=== PATIENT | female | born 1925 | race Caucasian/White ===

== ENCOUNTER → 2016-09-10 | Outpatient (CLI) | payer MEDICARE | END | disposition home or self-care (01) | LOC: CFH 13:17 | PROVIDERS: ATTEND Family Medicine | DX: M25.821 Other specified joint disorders, right elbow (principal); W18.30XA Fall on same level, unspecified, initial encounter ==

== ENCOUNTER 2016-10-22 10:16 | Inpatient (IN) | payer MEDICARE ==
[~2016-10-22] VITALS: Ht 154.9 cm; Wt 78.0 kg
[2016-10-22] MEDS ORDERED: DIPHENHYDRAMINE 50 MG/ML, 1ML IVPush ONE (10:30)
[2016-10-22] MEDS ORDERED: SODIUM CHLORIDE FLUSH 10ML SYR IVF ONE ×2 (10:30→14:00)
[2016-10-22] MEDS ORDERED: ONDANSETRON 2MG/ML, 2ML IVPush ONE (10:30)
[2016-10-22] MEDS ORDERED: METOCLOPRAMIDE 5 MG/ML, 2ML IVPush ONE (10:30)
[2016-10-22] MEDS ORDERED: METOCLOPRAMIDE 5 MG/ML, 2ML ONE (10:39)
[2016-10-22] MEDS ORDERED: DIPHENHYDRAMINE 50 MG/ML, 1ML ONE (10:40)
[2016-10-22] MEDS ORDERED: ONDANSETRON 2MG/ML, 2ML ONE (10:40)
[2016-10-22 11:21] LABS: HEMATOCRIT 42.1 % (34.6-47.8); HEMOGLOBIN 13.7 g/dL (11.7-16.4); WHITE BLOOD COUNT 11.4 x10^3/uL (3.4-10)
[2016-10-22 11:32] LABS: ASPARTATE AMINO TRANSFERASE 21 U/L (15-37); BLOOD UREA NITROGEN 19 mg/dL (7-18)
[2016-10-22 11:36] LABS: IS PT STATUS REG ER OR PRE ER? YES
[2016-10-22] MEDS ORDERED: ASPIRIN 81 MG TABLET CHEW ONE (11:52)
[2016-10-22] MEDS ORDERED: LOVA40TA2 PO (12:00)
[2016-10-22] MEDS ORDERED: LOSA25TA5 PO (12:00)
[2016-10-22] MEDS ORDERED: ASPIRIN 81 MG TABLET CHEW PO ONE (12:00)
[2016-10-22] MEDS ORDERED: OMEG-120 PO (12:02)
[2016-10-22] MEDS ORDERED: FOLI0.4T2 PO (12:02)
[2016-10-22] MEDS ORDERED: SERT100T5 PO (12:03)
[2016-10-22] MEDS ORDERED: HYDROmorphone 1 MG/ML, 1ML ONE (14:03)
[2016-10-22] MEDS: HYDROmorphone 1 MG/ML, 1ML IVPush PRN ×2 (14:11→15:11)
[2016-10-22] MEDS ORDERED: NS + 20MEQ KCL 1,000 ML IV SCH (14:12)
[2016-10-22] MEDS ORDERED: DOCUSATE 100 MG CAPSULE PO PRN (14:30)
[2016-10-22] MEDS ORDERED: HYDROcodone/APAP 5/325 TABLET PO PRN (14:30)
[2016-10-22] MEDS ORDERED: POLYETHYLENE GLYCOL 17 GM PACKET PO PRN (14:30)
[2016-10-22] MEDS ORDERED: ONDANSETRON 2MG/ML, 2ML IVPush PRN (14:30)
[2016-10-22] MEDS ORDERED: OMNIPAQUE 350 MG/ML, 100ML BOTTLE ONE (15:30)
[2016-10-22] MEDS: ACETAMINOPHEN 325 MG TABLET PO PRN (16:16)
[2016-10-22] MEDS ORDERED: ENOXAPARIN 40 MG/0.4 ML SQ SCH (16:30)
[2016-10-22] MEDS: LOSARTAN 25MG TABLET PO SCH ×2 (16:33→21:04)
[2016-10-22 20:06] VITALS: BP 111/64
[2016-10-22] MEDS ORDERED: LOVASTATIN 40 MG TABLET PO SCH (21:00)
[2016-10-23 01:13] VITALS: BP 135/75
[2016-10-23] MEDS: ACETAMINOPHEN 325 MG TABLET PO PRN ×2 (01:57→10:22)
[2016-10-23 05:33] LABS: IS PT STATUS REG ER OR PRE ER? NO
[2016-10-23] MEDS: ASPIRIN 325 MG TABLET EC PO SCH (06:06)
[2016-10-23 06:39] VITALS: BP 114/66
[2016-10-23] MEDS ORDERED: NS + 20MEQ KCL 1,000 ML IV SCH ×2 (07:00→19:00)
[2016-10-23] MEDS: LOSARTAN 25MG TABLET PO SCH ×3 (08:33→21:00)
[2016-10-23] MEDS: FOLIC ACID 1 MG TABLET PO SCH (08:33)
[2016-10-23] MEDS: SERTRALINE 100MG TABLET PO SCH (08:33)
[2016-10-23] MEDS: SENNA/DOCUSATE TABLET PO SCH (08:33)
[2016-10-23] MEDS: KETOROLAC 30 MG/1 ML IVPush PRN (08:34)
[2016-10-23] MEDS: METOPROLOL SUCCINATE 25 MG TAB.ER.24H PO SCH (10:29)
[2016-10-23 10:39] VITALS: BP 162/82
[2016-10-23 10:45] VITALS: BP 149/78
[2016-10-23] MEDS ORDERED: NITROGLYCERIN 0.4 MG BOTTLE (25 TABS) SL PRN (11:00)
[2016-10-23] MEDS ORDERED: ETOMIDATE 20 MG/10 ML ONE (11:00)
[2016-10-23] MEDS ORDERED: SUCCINYLCHOLINE 20 MG/ML, 10ML ONE (11:00)
[2016-10-23] MEDS ORDERED: MIDAZOLAM 1 MG/ML, 5ML ONE ×2 (11:00→11:42)
[2016-10-23] MEDS ORDERED: FENTANYL PF 100 MCG/2ML ONE (11:41)
[2016-10-23] MEDS ORDERED: LIDOCAINE 2%, 20ML ONE (11:42)
[2016-10-23] MEDS ORDERED: HEPARIN 1,000 UNITS/ML, 10ML ONE (11:42)
[2016-10-23] MEDS ORDERED: VERAPAMIL 2.5 MG/ML, 2ML ONE (11:42)
[2016-10-23] MEDS ORDERED: BIVALIRUDIN 250 MG ONE ×3 (11:42→14:21)
[2016-10-23] MEDS ORDERED: TICAGRELOR 90 MG TABLET ONE (11:42)
[2016-10-23] MEDS ORDERED: NITROGLYCERIN 5 MG/ML, 10ML ONE (11:42)
[2016-10-23] MEDS ORDERED: ADENOSINE 6 MG/2 ML ONE (12:44)
[2016-10-23] MEDS ORDERED: EPINEPHRINE SYRINGE 0.1 MG/ML, 10ML ONE ×2 (13:27→14:08)
[2016-10-23] MEDS ORDERED: PHENYLEPHRINE 10 MG/ML ONE (14:07)
[2016-10-23] MEDS ORDERED: DOPAMINE/D5W PMX 250 ML ONE (14:27)
[2016-10-23] MEDS: TICAGRELOR 90 MG TABLET PO SCH ×3 (14:30→21:32)
[2016-10-23] MEDS ORDERED: LIDOCAINE-MPF 1%, 2ML ENDO PRN (15:00)
[2016-10-23] MEDS ORDERED: BIVALIRUDIN 250 MG in DEXTROSE 5% 50 ML IV SCH (15:00)
[2016-10-23] MEDS ORDERED: PHARMACY MAY ADJ FOR RENAL FX MC SCH (15:00)
[2016-10-23 15:15] LABS: ABG COLLECTION SITE LEFT RADIAL; COLLATERAL CIRCULATION TESTING NORMAL
[2016-10-23] MEDS: FENTANYL PF 100 MCG/2ML IVPush PRN ×3 (15:50→22:20)
[2016-10-23] MEDS: ENOXAPARIN 30 MG/0.3 ML SQ SCH (16:00)
[2016-10-23] MEDS: PROPOFOL 100 ML IV PRN (16:00)
[2016-10-23] MEDS ORDERED: PICC FLUSH PROTOCOL XX PRN (17:00)
[2016-10-23] MEDS: ATORVASTATIN 40 MG TABLET PO SCH (21:32)
[2016-10-24] MEDS: PROPOFOL 100 ML IV PRN ×5 (00:17→19:51)
[2016-10-24] MEDS: DOPAMINE/D5W PMX 250 ML IV PRN ×2 (03:13→19:52)
[2016-10-24] MEDS: FENTANYL PF 100 MCG/2ML IVPush PRN ×8 (03:20→14:45)
[2016-10-24 04:34] LABS: ABG COLLECTION SITE RIGHT BRACHIAL
[2016-10-24 04:49] LABS: BLOOD UREA NITROGEN 22 mg/dL (7-18)
[2016-10-24] MEDS: METOPROLOL SUCCINATE 25 MG TAB.ER.24H PO SCH (04:54)
[2016-10-24 05:00] VITALS: BP 90/50
[2016-10-24 05:01] LABS: HEMATOCRIT 37.9 % (34.6-47.8); HEMOGLOBIN 12.4 g/dL (11.7-16.4)
[2016-10-24] MEDS: SODIUM CHLORIDE 0.9% 1,000 ML IV SCH ×2 (05:06→18:41)
[2016-10-24] MEDS: ASPIRIN 325 MG TABLET EC PO SCH (05:10)
[2016-10-24] MEDS: SENNA/DOCUSATE TABLET PO SCH (09:00)
[2016-10-24] MEDS: LOSARTAN 25MG TABLET PO SCH ×3 (09:00→20:27)
[2016-10-24] MEDS: ASPIRIN 81 MG TABLET EC PO SCH (09:00)
[2016-10-24] MEDS: FOLIC ACID 1 MG TABLET PO SCH (09:23)
[2016-10-24] MEDS: FAMOTIDINE 20 MG/2 ML IVPush SCH (09:23)
[2016-10-24] MEDS: AMPICILLIN/SULBACTAM 3 GM in SODIUM CHLORIDE 0.9% 100 ML IV SCH ×2 (09:23→17:08)
[2016-10-24] MEDS: TICAGRELOR 90 MG TABLET PO SCH ×2 (09:23→20:27)
[2016-10-24] MEDS: SERTRALINE 100MG TABLET PO SCH (09:23)
[2016-10-24] MEDS: ENOXAPARIN 30 MG/0.3 ML SQ SCH (16:11)
[2016-10-24] MEDS: ATORVASTATIN 40 MG TABLET PO SCH (20:27)
[2016-10-24] MEDS: KETOROLAC 30 MG/1 ML IVPush PRN (22:05)
[2016-10-25] MEDS: AMPICILLIN/SULBACTAM 3 GM in SODIUM CHLORIDE 0.9% 100 ML IV SCH ×3 (00:04→17:04)
[2016-10-25] MEDS: PROPOFOL 100 ML IV PRN ×2 (00:04→05:02)
[2016-10-25] MEDS: FENTANYL PF 100 MCG/2ML IVPush PRN ×2 (01:32→05:02)
[2016-10-25 04:10] LABS: ABG COLLECTION SITE RIGHT RADIAL; COLLATERAL CIRCULATION TESTING NORMAL
[2016-10-25 04:19] LABS: HEMATOCRIT 35.3 % (34.6-47.8); HEMOGLOBIN 11.6 g/dL (11.7-16.4); WHITE BLOOD COUNT 12.4 x10^3/uL (3.4-10)
[2016-10-25 04:45] VITALS: BP 130/53
[2016-10-25] MEDS: METOPROLOL SUCCINATE 25 MG TAB.ER.24H PO SCH (05:04)
[2016-10-25] MEDS: SODIUM CHLORIDE 0.9% 1,000 ML IV SCH ×2 (06:15→20:39)
[2016-10-25 07:08] LABS: BLOOD UREA NITROGEN 17 mg/dL (7-18)
[2016-10-25] MEDS ORDERED: POTASSIUM CHLORIDE 10% 40 MEQ/30 ML UDC PO ONE (08:00)
[2016-10-25] MEDS: SENNA/DOCUSATE TABLET PO SCH (09:00)
[2016-10-25] MEDS: LOSARTAN 25MG TABLET PO SCH ×3 (09:00→20:38)
[2016-10-25] MEDS: ASPIRIN 81 MG TABLET EC PO SCH (10:35)
[2016-10-25] MEDS: SERTRALINE 100MG TABLET PO SCH (10:35)
[2016-10-25] MEDS: ACETAMINOPHEN 325 MG TABLET PO PRN ×2 (10:35→22:08)
[2016-10-25] MEDS: FAMOTIDINE 20 MG/2 ML IVPush SCH (10:35)
[2016-10-25] MEDS: TICAGRELOR 90 MG TABLET PO SCH ×2 (10:35→20:37)
[2016-10-25] MEDS: FOLIC ACID 1 MG TABLET PO SCH (10:35)
[2016-10-25] MEDS: ENOXAPARIN 30 MG/0.3 ML SQ SCH (17:05)
[2016-10-25] MEDS ORDERED: HYDROcodone/APAP 5/325 TABLET PO PRN (18:30)
[2016-10-25] MEDS ORDERED: ONDANSETRON 2MG/ML, 2ML IVPush PRN (18:30)
[2016-10-25] MEDS ORDERED: DOCUSATE 100 MG CAPSULE PO PRN (18:30)
[2016-10-25] MEDS ORDERED: POLYETHYLENE GLYCOL 17 GM PACKET PO PRN (18:30)
[2016-10-25] MEDS ORDERED: PHARMACY MAY ADJ FOR RENAL FX MC SCH (18:30)
[2016-10-25] MEDS ORDERED: FUROSEMIDE 20 MG/2 ML IV ONE (18:30)
[2016-10-25] MEDS: ATORVASTATIN 40 MG TABLET PO SCH (20:37)
[2016-10-26] MEDS: AMPICILLIN/SULBACTAM 3 GM in SODIUM CHLORIDE 0.9% 100 ML IV SCH ×3 (01:09→18:04)
[2016-10-26 03:30] VITALS: BP 111/47
[2016-10-26 04:28] LABS: HEMATOCRIT 32.7 % (34.6-47.8); HEMOGLOBIN 10.8 g/dL (11.7-16.4); WHITE BLOOD COUNT 10.9 x10^3/uL (3.4-10)
[2016-10-26 04:53] LABS: ABG COLLECTION SITE RIGHT RADIAL; COLLATERAL CIRCULATION TESTING NORMAL
[2016-10-26 05:23] LABS: BLOOD UREA NITROGEN 14 mg/dL (7-18)
[2016-10-26] MEDS: METOPROLOL SUCCINATE 25 MG TAB.ER.24H PO SCH (06:00)
[2016-10-26] MEDS: ASPIRIN 81 MG TABLET EC PO SCH (08:10)
[2016-10-26] MEDS: FAMOTIDINE 20 MG/2 ML IVPush SCH (08:11)
[2016-10-26] MEDS: TICAGRELOR 90 MG TABLET PO SCH ×2 (08:11→21:05)
[2016-10-26] MEDS: LOSARTAN 25MG TABLET PO SCH ×3 (08:11→21:05)
[2016-10-26] MEDS: SERTRALINE 100MG TABLET PO SCH (08:11)
[2016-10-26] MEDS: SENNA/DOCUSATE TABLET PO SCH (08:11)
[2016-10-26] MEDS: FOLIC ACID 1 MG TABLET PO SCH (08:11)
[2016-10-26] MEDS ORDERED: SODIUM CHLORIDE 0.9% 1,000 ML IV SCH (08:30)
[2016-10-26] MEDS ORDERED: KETOROLAC 30 MG/1 ML ONE (10:00)
[2016-10-26] MEDS: KETOROLAC 30 MG/1 ML IVPush PRN (10:01)
[2016-10-26 14:45] VITALS: BP 147/72
[2016-10-26] MEDS: ENOXAPARIN 30 MG/0.3 ML SQ SCH (18:04)
[2016-10-26] MEDS: ATORVASTATIN 40 MG TABLET PO SCH (21:05)
[2016-10-27] MEDS: AMPICILLIN/SULBACTAM 3 GM in SODIUM CHLORIDE 0.9% 100 ML IV SCH ×3 (01:17→18:02)
[2016-10-27 04:00] VITALS: BP 152/78
[2016-10-27 05:28] LABS: HEMATOCRIT 32.2 % (34.6-47.8); HEMOGLOBIN 10.6 g/dL (11.7-16.4); WHITE BLOOD COUNT 9.8 x10^3/uL (3.4-10)
[2016-10-27 05:36] LABS: ASPARTATE AMINO TRANSFERASE 37 U/L (15-37); BLOOD UREA NITROGEN 18 mg/dL (7-18)
[2016-10-27] MEDS: METOPROLOL SUCCINATE 25 MG TAB.ER.24H PO SCH (06:10)
[2016-10-27 06:50] VITALS: BP 140/77
[2016-10-27] MEDS: LOSARTAN 25MG TABLET PO SCH (08:48)
[2016-10-27] MEDS: FOLIC ACID 1 MG TABLET PO SCH (08:49)
[2016-10-27] MEDS: TICAGRELOR 90 MG TABLET PO SCH ×2 (08:49→21:06)
[2016-10-27] MEDS: ASPIRIN 81 MG TABLET EC PO SCH (08:50)
[2016-10-27] MEDS: FAMOTIDINE 20 MG/2 ML IVPush SCH (08:50)
[2016-10-27] MEDS: SENNA/DOCUSATE TABLET PO SCH (08:50)
[2016-10-27] MEDS: SERTRALINE 100MG TABLET PO SCH (08:50)
[2016-10-27] MEDS ORDERED: METOPROLOL SUCCINATE 25 MG TAB.ER.24H PO ONE (10:00)
[2016-10-27] MEDS ORDERED: POTASSIUM CHLORIDE 20 MEQ TAB.ER.PRT PO ONE (11:00)
[2016-10-27] MEDS ORDERED: FUROSEMIDE 40 MG/4 ML IV ONE (11:00)
[2016-10-27 14:34] VITALS: BP 137/76
[2016-10-27] MEDS ORDERED: SENNA/DOCUSATE TABLET PO PRN (16:00)
[2016-10-27 16:56] VITALS: BP 139/79
[2016-10-27] MEDS: ENOXAPARIN 30 MG/0.3 ML SQ SCH (18:02)
[2016-10-27 20:09] VITALS: BP 148/78
[2016-10-27] MEDS: ATORVASTATIN 40 MG TABLET PO SCH (21:06)
[2016-10-28 01:04] VITALS: BP 155/69
[2016-10-28 05:21] VITALS: BP 148/84
[2016-10-28] MEDS: METOPROLOL SUCCINATE 50 MG TAB.ER.24H PO SCH (05:21)
[2016-10-28] MEDS: AMPICILLIN/SULBACTAM 3 GM in SODIUM CHLORIDE 0.9% 100 ML IV SCH ×3 (05:23→21:49)
[2016-10-28 05:31] LABS: WHITE BLOOD COUNT 8.5 x10^3/uL (3.4-10)
[2016-10-28 05:45] LABS: BLOOD UREA NITROGEN 18 mg/dL (7-18)
[2016-10-28 09:19] VITALS: BP 123/75
[2016-10-28] MEDS: ASPIRIN 81 MG TABLET EC PO SCH (09:21)
[2016-10-28] MEDS: FOLIC ACID 1 MG TABLET PO SCH (09:22)
[2016-10-28] MEDS: TICAGRELOR 90 MG TABLET PO SCH ×2 (09:22→21:49)
[2016-10-28] MEDS: LOSARTAN 25MG TABLET PO SCH (09:22)
[2016-10-28] MEDS: FAMOTIDINE 20 MG/2 ML IVPush SCH (09:23)
[2016-10-28] MEDS: SERTRALINE 100MG TABLET PO SCH (09:25)
[2016-10-28] MEDS: FUROSEMIDE 40 MG TABLET PO SCH (10:52)
[2016-10-28] MEDS: SPIRONOLACTONE 25 MG TABLET PO SCH (10:52)
[2016-10-28] MEDS: ENOXAPARIN 30 MG/0.3 ML SQ SCH (15:03)
[2016-10-28 16:41] VITALS: BP 122/77
[2016-10-28 18:36] VITALS: BP 132/68
[2016-10-28] MEDS: ATORVASTATIN 40 MG TABLET PO SCH (21:49)
[2016-10-29 04:00] VITALS: BP 129/76
[2016-10-29 05:24] LABS: WHITE BLOOD COUNT 9.6 x10^3/uL (3.4-10)
[2016-10-29 05:36] LABS: BLOOD UREA NITROGEN 18 mg/dL (7-18)
[2016-10-29] MEDS: METOPROLOL SUCCINATE 50 MG TAB.ER.24H PO SCH (06:00)
[2016-10-29 06:09] VITALS: BP 135/78
[2016-10-29] MEDS: AMPICILLIN/SULBACTAM 3 GM in SODIUM CHLORIDE 0.9% 100 ML IV SCH ×3 (06:17→23:50)
[2016-10-29 07:59] VITALS: BP 124/73
[2016-10-29] MEDS ORDERED: POTASSIUM CHLORIDE 20 MEQ TAB.ER.PRT PO ONE ×2 (08:30→15:00)
[2016-10-29] MEDS: FAMOTIDINE 20 MG/2 ML IVPush SCH (09:31)
[2016-10-29] MEDS: SERTRALINE 100MG TABLET PO SCH (09:31)
[2016-10-29] MEDS: FOLIC ACID 1 MG TABLET PO SCH (09:31)
[2016-10-29] MEDS: SPIRONOLACTONE 25 MG TABLET PO SCH (09:31)
[2016-10-29] MEDS: LOSARTAN 50MG TABLET PO SCH (09:31)
[2016-10-29] MEDS: ASPIRIN 81 MG TABLET EC PO SCH (09:31)
[2016-10-29] MEDS: TICAGRELOR 90 MG TABLET PO SCH ×2 (09:31→21:07)
[2016-10-29] MEDS: FUROSEMIDE 40 MG TABLET PO SCH (09:31)
[2016-10-29] MEDS ORDERED: FUROSEMIDE 20 MG/2 ML IV ONE (15:00)
[2016-10-29] MEDS: ENOXAPARIN 30 MG/0.3 ML SQ SCH (15:18)
[2016-10-29 19:06] VITALS: BP_SYST 142; BP_SYST 147; BP_DIAS 68; BP_DIAS 89
[2016-10-29] MEDS ORDERED: CALCIUM CARBONATE 500 MG TAB.CHEW PO PRN (20:00)
[2016-10-29] MEDS: ATORVASTATIN 40 MG TABLET PO SCH (21:07)
[2016-10-30 01:21] VITALS: BP 121/72
[2016-10-30 05:13] LABS: HEMATOCRIT 32.2 % (34.6-47.8); HEMOGLOBIN 10.8 g/dL (11.7-16.4); WHITE BLOOD COUNT 9.3 x10^3/uL (3.4-10)
[2016-10-30 05:39] LABS: BLOOD UREA NITROGEN 20 mg/dL (7-18)
[2016-10-30] MEDS: METOPROLOL SUCCINATE 50 MG TAB.ER.24H PO SCH (06:00)
[2016-10-30 07:38] VITALS: BP 108/64
[2016-10-30] MEDS ORDERED: POTASSIUM CHLORIDE 20 MEQ TAB.ER.PRT PO SCH (08:00)
[2016-10-30] MEDS: SERTRALINE 100MG TABLET PO SCH (08:05)
[2016-10-30] MEDS: AMPICILLIN/SULBACTAM 3 GM in SODIUM CHLORIDE 0.9% 100 ML IV SCH (08:05)
[2016-10-30] MEDS: ASPIRIN 81 MG TABLET EC PO SCH (08:06)
[2016-10-30] MEDS: FUROSEMIDE 40 MG TABLET PO SCH (08:06)
[2016-10-30] MEDS: FOLIC ACID 1 MG TABLET PO SCH (08:06)
[2016-10-30] MEDS: FAMOTIDINE 20 MG/2 ML IVPush SCH (08:06)
[2016-10-30] MEDS: SPIRONOLACTONE 25 MG TABLET PO SCH (08:06)
[2016-10-30] MEDS: TICAGRELOR 90 MG TABLET PO SCH (08:06)
[2016-10-30] MEDS: LOSARTAN 50MG TABLET PO SCH (09:00)
[2016-10-30] MEDS ORDERED: POTASSIUM CHLORIDE 20 MEQ TAB.ER.PRT PO ONE (12:00)
[2016-10-30] MEDS ORDERED: ATOR40TA78 PO (12:32)
[2016-10-30] MEDS ORDERED: ASPI-621 PO (12:32)
[2016-10-30] MEDS ORDERED: TICA90TA PO (12:32)
[2016-10-30] MEDS ORDERED: SERT100T5 PO (12:32)
[2016-10-30] MEDS ORDERED: LOSA50TA2 PO (12:32)
[2016-10-30] MEDS ORDERED: POTA20TA6 PO (12:32)
[2016-10-30] MEDS ORDERED: SPIR25TA PO (12:32)
[2016-10-30] MEDS ORDERED: FURO40TA6 PO (12:32)
[2016-10-30] MEDS ORDERED: FAMO20TA7 PO (12:32)
[2016-10-30] MEDS ORDERED: METO-93 PO (12:32)
[2016-10-30] MEDS ORDERED: NITR0.4T SL (12:32)
[2016-10-30 13:24] VITALS: BP 114/66
[2016-10-31] MEDS ORDERED: FAMOTIDINE 20 MG TABLET PO SCH (09:00)
== END 2016-10-30 17:28 | DRG 270 ==
LOC: SUATTDRO 13:14 → ED 13:30 → EDIP 13:31 → ED 14:33 → 5SO 15:47 → CCU 10-23 13:26 → 5SO 10-26 10:02
PROVIDERS: ADMIT Family Medicine; ATTEND Family Medicine
PROC: 5A02210 Assistance with Cardiac Output using Balloon Pump, Continuous (ICD-10-PCS; principal; 2016-10-23)
PROC: 027135Z Dilation of Coronary Artery, Two Arteries with Two Drug-eluting Intraluminal Devices, Percutaneous Approach (ICD-10-PCS; 2016-10-23)
PROC: 4A023N7 Measurement of Cardiac Sampling and Pressure, Left Heart, Percutaneous Approach (ICD-10-PCS; 2016-10-23)
PROC: B2111ZZ Fluoroscopy of Multiple Coronary Arteries using Low Osmolar Contrast (ICD-10-PCS; 2016-10-23)
PROC: B2151ZZ Fluoroscopy of Left Heart using Low Osmolar Contrast (ICD-10-PCS; 2016-10-23)
PROC: 5A1945Z Respiratory Ventilation, 24-96 Consecutive Hours (ICD-10-PCS; 2016-10-23)
PROC: 02HV33Z Insertion of Infusion Device into Superior Vena Cava, Percutaneous Approach (ICD-10-PCS; 2016-10-23)
PROC: B548ZZA Ultrasonography of Superior Vena Cava, Guidance (ICD-10-PCS; 2016-10-23)
PROC: 0BH17EZ Insertion of Endotracheal Airway into Trachea, Via Natural or Artificial Opening (ICD-10-PCS; 2016-10-24)
DX: I21.4 Non-ST elevation (NSTEMI) myocardial infarction (principal); R57.0 Cardiogenic shock; J96.91 Respiratory failure, unspecified with hypoxia; I50.30 Unspecified diastolic (congestive) heart failure; G93.40 Encephalopathy, unspecified; I11.0 Hypertensive heart disease with heart failure; E44.0 Moderate protein-calorie malnutrition; I42.9 Cardiomyopathy, unspecified; Z99.11 Dependence on respirator [ventilator] status; I48.91 Unspecified atrial fibrillation; E78.5 Hyperlipidemia, unspecified; I25.10 Atherosclerotic heart disease of native coronary artery without angina pectoris; I27.2 Other secondary pulmonary hypertension; I27.81 Cor pulmonale (chronic); E87.6 Hypokalemia; F32.9 Major depressive disorder, single episode, unspecified; G44.89 Other headache syndrome; I08.1 Rheumatic disorders of both mitral and tricuspid valves; Z66 Do not resuscitate; I25.2 Old myocardial infarction; Z90.710 Acquired absence of both cervix and uterus; Z79.82 Long term (current) use of aspirin; Z88.5 Allergy status to narcotic agent; Z88.2 Allergy status to sulfonamides; Z68.32 Body mass index [BMI] 32.0-32.9, adult; Z87.891 Personal history of nicotine dependence; Z80.41 Family history of malignant neoplasm of ovary
CPT/HCPCS: 33210; 33967; 36415; 36569; 36600; 70450; 71010; 71020; 71275; 76937; 77001; 80048; 80053; 80061; 81003; 82040; 82803; 83605; 83735; 83880; 84478; 84484; 85025; 85379; 85610; 85730; 87040; 87070; 87077; 87081; 87186; 87205; 87324; 93005; 93306; 93308; 93458; 94002; 94003; 96374; 96375; 99156; 99157; C1725; C1760; C1894; C9600; C9601; J0153; J0295; J0583; J1170; J1265; J1644; J1650; J1885; J1940; J2250; J2405; J2704; J3010; J3480; J3490; Q9967; C1751; C1874; C1887; J0330; J1200; J2370; J2765; J7030; S0028

== ENCOUNTER → 2017-04-07 | Outpatient (CLI) | payer MEDICARE ==
[~2017-04-07] MED LIST: ASPI-621 PO; ATOR40TA78 PO; FAMO20TA7 PO; FOLI0.4T2 PO; FURO40TA6 PO; LOSA25TA5 PO; LOSA50TA2 PO; LOVA40TA2 PO; METO-93 PO; NITR0.4T SL; OMEG-120 PO; POTA20TA6 PO; SERT100T5 PO; SPIR25TA PO; TICA90TA PO
== END | disposition home or self-care (01) ==
LOC: CFH 12:50
PROVIDERS: ATTEND Family Medicine
DX: M71.21 Synovial cyst of popliteal space [Baker], right knee (principal)